=== PATIENT | male | born 1965 | race Caucasian/White ===

== ENCOUNTER 2021-09-20 15:42 | Inpatient (IN) ==
[2021-09-20 16:59] LABS: Urine Appearance Clear; Urine Bilirubin Negative (Negative); Urine Blood Trace (Intact) (Negative); Urine Color Yellow; Urine Glucose Negative (Negative); Urine Ketones Negative (Negative); Urine Nitrite Negative (Negative); Urine Protein Trace (Negative); Urine Specific Gravity 1.015 (1.005-1.030); Urine Urobilinogen 0.2 (Negative) (Negative); Urine pH 5.5 (5.0-9.0)
[2021-09-20 17:11] LABS: Urine Bacteria 1+ (Absent); Urine Red Blood Cell Trace(0-2/hpf) (Absent); Urine Squamous Epithelial Cell Present (Absent); Urine White Blood Cell Trace(0-5/hpf) (Absent)
[2021-09-20 17:15] LABS: Urine Benzodiazepine Screen None Detected (None Detect); Urine Cannabinoids Screen Presumptive Positive (None Detect); Urine Opiates Screen None Detected (None Detect)
[2021-09-20 17:17] LABS: Hematocrit 37 % (42-52); Hemoglobin 12.9 g/dL (14.0-18.0); Mean Corpuscular HGB Conc 35 g/dL (31-36); Mean Corpuscular Hemoglobin 35 pg (27-31); Mean Corpuscular Volume 100 fL (80-94); Red Cell Distribution Width 13 % (10-15); White Blood Count 4.1 10^3/uL (3.5-10.8)
[2021-09-20 17:42] LABS: ALT 20 U/L (7-52); AST 29 U/L (13-39); Acetaminophen < 15 mcg/mL; Albumin 3.7 g/dL (3.2-5.2); Albumin/Globulin Ratio 0.9 (1-3); Alcohol, S < 13 mg/dL (<13); Alkaline Phosphatase 53 U/L (35-149); Anion Gap 8 mmol/L (2-11); Blood Urea Nitrogen 12 mg/dL (6-24); CO2 Carbon Dioxide 22 mmol/L (22-32); Calcium 8.6 mg/dL (8.6-10.3); Chloride 109 mmol/L (101-111); Globulin 4.1 g/dL (2-4); Glucose 86 mg/dL (70-100); Potassium 3.8 mmol/L (3.5-5.0); Salicylate < 2.50 mg/dL (<30); Sodium 139 mmol/L (135-145); Total Protein 7.8 g/dL (6.4-8.9); eGFR CKD-EPI 63.3 (>60)
[2021-09-20 17:51] LABS: ABS Lymphocytes 1.2 10^3/ul (1.0-4.8); ABS Monocytes 0.4 10^3/ul (0-0.8); ABS Neutrophils 2.5 10^3/ul (1.5-7.7); Eosinophil % 1.1 %; Lymphocyte % 28.1 %; Mean Platelet Volume 10.5 fL (7.4-10.4); Nucleated Red Blood Cells % 0.1; Platelet Count 36 10^3/uL (150-450); TSH Ultra Thyroid Stim Horm 3.28 mcIU/mL (0.34-5.60)
[2021-09-21] MEDS ORDERED: Iohexol 350 (CONTRAST) 500 ML MDV IV ONE (01:25)
[2021-09-21 03:35] LABS: HIV 4th Generation Preliminary Reactive (Nonreactive)
[2021-09-21] MEDS ORDERED: Al Hydrox/Mg Hydrox/Simet LIQ 30 ML UDC PO PRN ×2 (07:47→08:12)
[2021-09-21] MEDS ORDERED: Vitamin THERAPEUTIC TAB PO SCH (09:00)
[2021-09-21] MEDS: Vitamin THERAPEUTIC TAB PO SCH (13:27)
[2021-09-21] MEDS ORDERED: OLANZapine 5 mg TAB *ODT PO PRN (13:55)
[2021-09-21] MEDS ORDERED: Albuterol HFA INHALER 8 gm MDI INH PRN (15:48)
[2021-09-21 16:28] LABS: % Iron Saturation 17 % (15-55); Corrected Retic Count 0.8 % (0.5-1.5); Hematocrit for Retic CNT 34 % (42-52); Iron 48 ug/dL (50-212); Total Iron Binding Capacity 290 mcg/dL (250-450); Transferrin 207 mg/dL (203-362); Unsaturated Iron Binding 242 ug/dL
[2021-09-21] MEDS: Nicotine PATCH 14 MG/24 HR PATCH TRANSDERM SCH (20:48)
[2021-09-22] MEDS ORDERED: Nicotine GUM 4MG FRUIT FLAVOR PO PRN (10:42)
[2021-09-22] MEDS ORDERED: Nicotine Lozenge mini 4 MG LOZNG.MINI MT PRN (10:42)
[2021-09-22] MEDS: Nicotine PATCH 14 MG/24 HR PATCH TRANSDERM SCH (12:32)
[2021-09-22] MEDS: Vitamin THERAPEUTIC TAB PO SCH (12:32)
[2021-09-22 14:05] LABS: HIV-1 Ab Differentiation,P Positive (Negative); HIV-2 Ab Differentiation,P Negative (Negative)
[2021-09-23] MEDS: Vitamin THERAPEUTIC TAB PO SCH (07:45)
[2021-09-23] MEDS: Nicotine PATCH 14 MG/24 HR PATCH TRANSDERM SCH (07:45)
[2021-09-23 08:06] LABS: Hematocrit 41 % (42-52); Hemoglobin 14.3 g/dL (14.0-18.0); Mean Corpuscular HGB Conc 35 g/dL (31-36); Mean Corpuscular Hemoglobin 35 pg (27-31); Mean Corpuscular Volume 99 fL (80-94); Red Blood Count 4.11 10^6 /uL (4.18-5.48); Red Cell Distribution Width 13 % (10-15); White Blood Count 3.4 10^3/uL (3.5-10.8)
[2021-09-23 08:18] LABS: Calcium 8.7 mg/dL (8.6-10.3); HDL Cholesterol 41.8 mg/dL; Potassium 4.2 mmol/L (3.5-5.0); eGFR CKD-EPI 63.9 (>60)
[2021-09-23 08:46] VITALS: BP 114/67
[2021-09-23 08:47] LABS: Hepatitis B Surface Antigen Nonreactive (Nonreactive)
[2021-09-23 08:52] LABS: Hepatitis A Ab IgM Negative (Negative)
[2021-09-23 08:53] LABS: Hepatitis B Core IgM Nonreactive (Nonreactive)
[2021-09-23 09:00] LABS: ABS Eosinophils 0.1 10^3/ul (0-0.6); ABS Lymphocytes 0.9 10^3/ul (1.0-4.8); ABS Monocytes 0.4 10^3/ul (0-0.8); ABS Neutrophils 2.1 10^3/ul (1.5-7.7); Eosinophil % 2.5 %; Lymphocyte % 26.7 %; Platelet Count Platelets clumped. 10^3/uL (150-450)
[2021-09-23 10:01] LABS: Hepatitis C Antibody Reactive (Negative)
== END 2021-09-23 15:03 | disposition home or self-care (01) | DRG 883 ==
LOC: ED 15:42 → EDHOLD 09-21 08:12 → BSU 09-21 11:35
PROVIDERS: ADMIT Psychiatry & Neurology Psychiatry; ATTEND Student in an Organized Health Care Education/Training Program